=== PATIENT | female | born 1985 | race Caucasian/White ===

== ENCOUNTER 2020-07-29 08:00 | Inpatient (IN) ==
[2020-07-29] MEDS ORDERED: Lidocaine 1% 20 ML MDV INFILT PRN (08:41)
[2020-07-29] MEDS ORDERED: Famotidine 20 MG/2 ML VIAL IVP PRN (08:41)
[2020-07-29] MEDS ORDERED: miSOPROStoL 25 MCG TABLET PO PRN (08:41)
[2020-07-29] MEDS ORDERED: Metoclopramide 10 MG/2 ML VIAL IVP PRN (08:41)
[2020-07-29] MEDS ORDERED: Azithromycin 500 MG in 0.9 % Sodium Chloride 250 ML IVPB PRN (08:41)
[2020-07-29] MEDS ORDERED: Naloxone 0.4 MG/ML INJ IVP PRN (08:41)
[2020-07-29] MEDS ORDERED: *HR* Nalbuphine 10 MG/ML AMPUL IV PRN (08:41)
[2020-07-29] MEDS ORDERED: Ropivacaine/PF 0.2% 20 ML VIAL ONE ×2 (08:45→11:57)
[2020-07-29] MEDS ORDERED: Ringers Solution, Lactated 1,000 ML IVC SCH (08:45)
[2020-07-29] MEDS ORDERED: *HR* FentaNYL (PF) 100 MCG/2 ML VIAL ONE ×5 (08:45→19:59)
[2020-07-29] MEDS ORDERED: Penicillin G Potassium 5,000,000 UNIT in 0.9 % Sodium Chloride Mini Bag 100 ML IVPB ONE (08:45)
[2020-07-29] MEDS ORDERED: Oxytocin 20 units/ LR 1000 mL 20 UNIT/1,000 ML BAG IVC SCH ×2 (08:45→23:11)
[2020-07-29 09:14] LABS: Basophils % 0.3 %; Eosinophils # 0.1 K/mcL (0.0-0.6); Eosinophils % 1.1 %; Hemoglobin 12.7 g/dL (11.5-15.4); Immature Granulocytes % 1.1 % (0-4); Lymphocytes % 19.2 %; Mean Corpuscular HGB Conc 34.3 g/dL (31.6-35.5); Mean Corpuscular Hemoglobin 33.1 pg (28.0-33.3); Mean Corpuscular Volume 96.4 fL (83.0-100.0); Mean Platelet Volume 10.9 fL (9.4-12.4); Monocytes # 0.7 K/mcL (0.0-1.3); Monocytes % 6.6 %; Neutrophils # 7.3 K/mcL (1.6-8.9); Platelet Count 196 K/mcL (140-400); Red Blood Count 3.84 M/mcL (3.82-4.97); Segmented Neutrophils % 71.7 %; White Blood Count 10.1 K/mcL (4.3-11.1)
[2020-07-29 09:30] LABS: Amphetamine Screen,Urine Negative ng/mL (Cutoff=1000); Barbiturate Screen,Urine Negative ng/mL (Cutoff=200); Benzodiazepines Screen,Urine Negative ng/mL (Cutoff=200); Cannabinoid Screen,Urine Negative ng/mL (Cutoff = 50); Cocaine Screen,Urine Negative ng/mL (Cutoff= 300); Opiate Screen,Urine Negative ng/mL (Cutoff=300); Phencyclidine Screen,Urine Negative ng/mL (Cutoff=25)
[2020-07-29] MEDS ORDERED: Ondansetron 4 MG/2 ML VIAL IVP PRN (09:43)
[2020-07-29] MEDS ORDERED: Ondansetron 4 MG/2 ML VIAL ONE (09:48)
[2020-07-29 11:52] LABS: Adenovirus Not Detected (Not Detect); Bordetella Pertussis Not Detected (Not Detect); Chlamydophila pneumoniae Not Detected (Not Detect); Coronavirus 229E Not Detected (Not Detect); Coronavirus HKU1 Not Detected (Not Detect); Coronavirus NL63 Not Detected (Not Detect); Coronavirus OC43 Not Detected (Not Detect); Human Metapneumovirus Not Detected (Not Detect); Human Rhinovirus/Enterovirus Not Detected (Not Detect); Influenza A Subtype 2009 H1 Not Detected (Not Detect); Influenza B Not Detected (Not Detect); Mycoplasma pneumoniae Not Detected (Not Detect); Parainfluenza Virus 1 Not Detected (Not Detect); Parainfluenza Virus 2 Not Detected (Not Detect); Parainfluenza Virus 3 Not Detected (Not Detect); Parainfluenza Virus 4 Not Detected (Not Detect); Respiratory Syncytial Virus Not Detected (Not Detect); SARS-CoV-2 Not Detected (Not Detect)
[2020-07-29] MEDS ORDERED: Penicillin G Potassium 2,500,000 UNIT in 0.9 % Sodium Chloride 100 ML IVPB SCH (12:00)
[2020-07-29] MEDS ORDERED: Epidural Premix (fent/bupiv) 110 ML EP ONE (14:28)
[2020-07-29] MEDS ORDERED: EPHEDrine 50 MG/ML VIAL ONE (15:36)
[2020-07-29] MEDS ORDERED: Lidocaine 1% 20 ML MDV ONE (20:25)
[2020-07-29] MEDS ORDERED: Benzocaine/Menthol 56 GM AEROSOL SPRAY TP PRN (23:11)
[2020-07-29] MEDS ORDERED: Lanolin 7 G OINT...G. TP PRN (23:11)
[2020-07-29] MEDS: Acetaminophen 325 MG TABLET PO PRN (23:18)
[2020-07-29] MEDS: Ibuprofen 600 MG TABLET PO SCH (23:18)
[2020-07-30] MEDS: Ibuprofen 600 MG TABLET PO SCH ×2 (05:33→16:33)
[2020-07-30] MEDS: Acetaminophen 325 MG TABLET PO PRN (08:38)
[2020-07-30] MEDS: Prenatal Vit/FA 1 EACH TABLET PO SCH (08:39)
[2020-07-31] MEDS: Ibuprofen 600 MG TABLET PO SCH (06:56)
[2020-07-31 07:12] VITALS: BP 126/78
[2020-07-31] MEDS: Prenatal Vit/FA 1 EACH TABLET PO SCH (08:11)
== END 2020-07-31 11:10 | disposition home or self-care (01) | DRG 807 ==
LOC: 1NENULAB 08:07 → 1NENUOBS 23:18
PROVIDERS: ADMIT Obstetrics & Gynecology; ATTEND Obstetrics & Gynecology